=== PATIENT | male | born 1930 | race Caucasian/White ===

== ENCOUNTER → 2016-11-11 | Outpatient (CLI) | payer MEDICARE, BC ==
[~2016-11-11] MED LIST: ASPI81TA82 PO; CARV3.12 PO; FURO1TAB93 PO; ISOS30 PO; JALYCAP PO; LEVO.1 PO; LISI10TA PO; NITR0.4S SL; POTA-243 PO; SIMV20TA PO; TAB-TAB PO; ULTR50TA PO
--- NOTE | 2016-11-16 10:56 | RSPPFT ---
DATE OF PROCEDURE: 11/11/16 COMMENTS: VOLUMES DYNAMIC: FVC and FEV1 moderately reduced. STATIC: TLC mildly reduced; FRC and RV normal. FLOWS: FEV1% normal; FEF 25-75 severely reduced. DIFFUSION: Mildly reduced. FLOW VOLUME LOOP: Restrictive configuration with terminal airflow obstruction. IMPRESSION: Combined mild to moderate obstructive and restrictive ventilatory defect with reduction in diffusion and no significant hyperinflation. There is mild improvement post-bronchodilator. Airways resistance is increased.
== END ==
LOC: HRSP 10:28
PROVIDERS: ATTEND Internal Medicine
DX: J44.9 Chronic obstructive pulmonary disease, unspecified (principal)
CPT/HCPCS: 94060; 94620; 94726; 94729